=== PATIENT | male | born 1970 ===

== ENCOUNTER → 2023-07-17 | Outpatient (CLI) | payer BC ==
--- NOTE | 2023-07-18 07:52 | XR ---
EXAMINATION TYPE: XR knee complete RT DATE OF EXAM: 07/17/2023 CLINICAL HISTORY: pain TECHNIQUE: Three views of the right knee are obtained. COMPARISON: None. FINDINGS: There is no acute fracture/dislocation. [id number] degenerative joint space narrowin g. The overlying soft tissue appears unremarkable. IMPRESSION: There is no acute fracture or dislocation.ICD 10 NO FRACTURE, INITIAL EVALUATION
== END | disposition home or self-care (01) ==
LOC: RADXRMAIN 16:15
PROVIDERS: ATTEND Physician Assistant
DX: M25.561 Pain in right knee (principal)

== ENCOUNTER 2023-08-16 15:11 | Emergency (ER) | payer BC ==
[2023-08-16 15:26] VITALS: RESP 16
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
[2023-08-16] MEDS: HYDROcodone/APAP 5-325MG 1 EACH TAB PO STA (16:12)
[2023-08-16 16:25] LABS: Basophils % (A) 1 %; Eosinophils # (A) 0.1 k/uL (0-0.7); Eosinophils % (A) 3 %; HGB 15.6 gm/dL (13.0-17.5); Lymphocytes # (A) 1.2 k/uL (1.0-4.8); Lymphocytes % (A) 23 %; MCH 32.3 pg (25.0-35.0); MCHC 33.2 g/dL (31.0-37.0); MCV 97.2 fL (80.0-100.0); Mean Platelet Volume 7.6; Monocytes # (A) 0.4 k/uL (0-1.0); Monocytes % (A) 7 %; Neutrophils # (A) 3.5 k/uL (1.3-7.7); Neutrophils % (A) 66 %; Platelet Count 190 k/uL (150-450); RBC 4.83 m/uL (4.30-5.90); RDW 13.4 % (11.5-15.5); WBC 5.3 k/uL (3.8-10.6)
[2023-08-16 16:34] LABS: ALT 27 U/L (4-49); AST 26 U/L (17-59); African American GFR (CKD) >90 (>60 ml/min/1.73 sqM); Albumin 4.2 g/dL (3.5-5.0); Alkaline Phosphatase 52 U/L (38-126); Anion Gap 6 mmol/L; Blood Urea Nitrogen 14 mg/dL (9-20); Carbon Dioxide 24 mmol/L (22-30); Chloride 108 mmol/L (98-107); Glucose 119 mg/dL (74-99); Non-African American GFR(CKD) >90 (>60 ml/min/1.73 sqM); Potassium 4.2 mmol/L (3.5-5.1); Sodium 138 mmol/L (137-145); Total Bilirubin 0.7 mg/dL (0.2-1.3); Total Protein 6.6 g/dL (6.3-8.2)
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
[2023-08-16 18:31] VITALS: BP 144/86; PULSE 71; TEMP 98.2
== END 2023-08-16 18:30 | disposition home or self-care (01) ==
LOC: EC 15:11
DX: S46.912A Strain of unspecified muscle, fascia and tendon at shoulder and upper arm level, left arm, initial encounter (principal); V89.2XXA Person injured in unspecified motor-vehicle accident, traffic, initial encounter; Y92.411 Interstate highway as the place of occurrence of the external cause
CPT/HCPCS: 36415; 80053; 85025; 71260; 74177; 99284; Q9967

== ENCOUNTER 2023-08-19 15:45 | Inpatient (IN) | payer BC ==
--- NOTE | 2023-08-19 16:18 | ED ---
Chest Pain HPI - General Chief Complaint: Chest Pain Stated Complaint: chest pain NVD heartburn Time Seen by Provider: 08/19/23 15:59 Source: patient, RN notes reviewed, old records reviewed Mode of arrival: ambulatory Limitations: no limitations - History of Present Illness Initial Comments: This is a 53-year-old male for chest pain chest pain nausea vomiting shortness of breath diaphoresis and overall not feeling well. Patient denies any significant medical history no high blood pressure no high cholesterol no diabetes no smoking. No travel history no sick contacts patient still has persistent chest pain here in the ER MD Complaint: chest pain Onset: during rest, during exertion Pain Location: substernal, left chest Pain Radiation: none Severity: moderate Severity scale (1-10): 5 Consistency: constant Improves With: nothing Worsens With: nothing Anginal Symptoms: dyspnea, sense of impending doom Other Symptoms: palpitations - Related Data Allergies Allergy/AdvReac Type Severity Reaction Status Date / Time No Known Allergies Allergy Verified 08/19/23 15:48 Review of Systems ROS Statement: Those systems with pertinent positive or pertinent negative responses have been documented in the HPI. ROS Other: All systems not noted in ROS Statement are negative. EKG Findings - EKG Comments: EKG Findings:: EKG is sinus 60 IN 153 QRS 120 QTc 405 - EKG Results: EKG: interpreted by [facility] Past Medical History Past Medical History: GERD/Reflux Additional Past Medical History / Comment(s): Back pain. History of Any Multi-Drug Resistant Organisms: None Reported Past Surgical History: Orthopedic Surgery Additional Past Surgical History / Comment(s): brain tumor surgically removed 2021 Past Psychological History: Anxiety, Depression Smoking Status: Never smoker Past Alcohol Use History: Occasional Past Drug Use History: None Reported General Exam Limitations: no limitations General appearance: alert, in no apparent distress, anxious Head exam: Present: atraumatic, normocephalic, normal inspection Eye exam: Present: normal appearance, PERRL, EOMI. Absent: scleral icterus, conjunctival injection, periorbital swelling ENT exam: Present: normal exam, mucous membranes moist Neck exam: Present: normal inspection. Absent: tenderness, meningismus, lymphadenopathy Respiratory exam: Present: normal lung sounds bilaterally. Absent: respiratory distress, wheezes, rales, rhonchi, stridor Cardiovascular Exam: Present: regular rate, normal rhythm, normal heart sounds. Absent: systolic murmur, diastolic murmur, rubs, gallop, clicks GI/Abdominal exam: Present: soft, normal bowel sounds. Absent: distended, tenderness, guarding, rebound, rigid Extremities exam: Present: normal inspection, full ROM, normal capillary refill. Absent: tenderness, pedal edema, joint swelling, calf tenderness Back exam: Present: normal inspection Neurological exam: Present: alert, oriented X3, CN II-XII intact Psychiatric exam: Present: normal affect, normal mood Skin exam: Present: warm, dry, intact, normal color. Absent: rash Course Vital Signs 08/19/23 15:46 Temperature 97.8 F Pulse Rate 64 Respiratory 20 Rate Blood Pressure 174/94 O2 Sat by Pulse 99 Oximetry - Reevaluation(s) Reevaluation #1: 08/19/23 17:18 Medical records reviewed Reevaluation #2: 08/19/23 17:18 Patient symptoms unchanged Reevaluation #3: 08/19/23 17:18 Patient informed of results questions answered Reevaluation #4: Was pt. sent in by a medical professional or institution (, PA, FLOATER OPERATOR, urgent care, hospital, or group home...) When possible be specific @ -no Did you speak to anyone other than the patient for history (EMS, parent, family, police, friend...)? What history was obtained from this source @ -no Did you review nursing and triage notes (agree or disagree)? Why? @ -agree Are old charts reviewed (outside hosp., previous admission, EMS record, old EKG, old radiological studies, urgent care reports/EKG's, group home records)? Report findings @ -yes Differential Diagnosis (chest pain, altered mental status, abdominal pain women, abdominal pain men, vaginal bleeding, weakness, fever, dyspnea, syncope, headache, dizziness, GI bleed, back pain, seizure, CVA, palpatations, mental health, musculoskeletal)? @ -prior EKG interpreted by me (3pts min.). @ -yes X-rays interpreted by me (1pt min.). @ -yes negative for acute disease CT interpreted by me (1pt min.). @ -no U/S interpreted by me (1pt. min.). @ -no What testing was considered but not performed or refused? (CT, X-rays, U/S, labs)? Why? @ -none What meds were considered but not given or refused? Why? @ -none Did you discuss the management of the patient with other professionals (perry garcia i.eAbbe Banda, PA, FLOATER OPERATOR, lab, RT, psych nurse, professor of social work, criminal legal assistant, teacher, records officer, watch case polisher)? Give summary @ -no Was smoking cessation discussed for >3mins.? @ -no Was critical care preformed (if so, how long)? @ -no Were there social determinants of health that impacted care today? How? (Homelessness, low income, unemployed, alcoholism, drug addiction, transportation, low edu. Level, literacy, decrease access to med. care, prison, rehab)? @ -none Was there de-escalation of care discussed even if they declined (Discuss DNR or withdrawal of care, Hospice)? DNR status @ -no What co-morbidities impacted this encounter? (DM, HTN, Smoking, COPD, CAD, Cancer, CVA, ARF, Chemo, Hep., AIDS, mental health diagnosis, sleep apnea, morbid obesity)? @ -none Was patient admitted / discharged? Hospital course, mention meds given and route, prescriptions, significant lab abnormalities, going to OR and other pertinent info. @ - Undiagnosed new problem with uncertain prognosis? @ -no Drug Therapy requiring intensive monitoring for toxicity (Heparin, Nitro, Insulin, Cardizem)? @ -no Were any procedures done? @ -no Diagnosis/symptom? @ - Acute, or Chronic, or Acute on Chronic? @ -Acute Uncomplicated (without systemic symptoms) or Complicated (systemic symptoms)? @ -Complicated Side effects of treatment? @ -no Exacerbation, Progression, or Severe Exacerbation? @ -exacerbation Poses a threat to life or bodily function? How? (Chest pain, [place], [place], pneumonia, PE, COPD, DKA, ARF, appy, cholecystitis, CVA, Diverticulitis, Homicidal, Suicidal, threat to staff... and all critical care pts) @ -yes Reevaluation #5: Differential Chest Pain: Stable Angina, Unstable Angina, STEMI, NSTEMI Aortic Dissection, Pneumothorax, Musculoskeletal, Esophageal Spasm GERD, Cholecystitis, Pancreatitis, Zoster, this is not meant to be an all-inclusive list. - Consultations Consultation #1: Spoke with [facility] who agrees to admit this patient Chest Pain MDM - MDM 53 male to ER for evaluation of chest pain, patient does have typical chest pain and heaviness on the chest to his back with elevated blood pressure, diaphoresis and persistent chest pain throughout ER stay. Patient admitted for cardiac consult Disposition Clinical Impression: Chest pain Disposition: ADMITTED IP TO THIS HOSP Condition: Undetermined Is patient prescribed a controlled substance at d/c from ED?: No Referrals: None,Stated [Primary Care Provider] - 1-2 days Time of Disposition: 18:30
[2023-08-19] MEDS: ONDANSETRON 4 MG/2 ML VIAL IVP STA (16:37)
[2023-08-19] MEDS: MORPHINE SULFATE 4 MG/ML SYRINGE IV STA (16:38)
[2023-08-19] MEDS: SODIUM CHLORIDE 0.9% 500 ML 500 ML IV STA (16:40)
[2023-08-19 16:45] LABS: Basophils % (A) 1 %; Eosinophils # (A) 0.1 k/uL (0-0.7); Eosinophils % (A) 2 %; HCT 46.5 % (39.0-53.0); HGB 15.6 gm/dL (13.0-17.5); Lymphocytes % (A) 18 %; MCH 32.2 pg (25.0-35.0); MCHC 33.6 g/dL (31.0-37.0); Mean Platelet Volume 7.7; Monocytes # (A) 0.4 k/uL (0-1.0); Monocytes % (A) 8 %; Neutrophils # (A) 3.7 k/uL (1.3-7.7); Neutrophils % (A) 70 %; Platelet Count 196 k/uL (150-450); RBC 4.84 m/uL (4.30-5.90); RDW 13.3 % (11.5-15.5); WBC 5.3 k/uL (3.8-10.6)
[2023-08-19 16:54] LABS: ALT 26 U/L (4-49); AST 24 U/L (17-59); African American GFR (CKD) >90 (>60 ml/min/1.73 sqM); Albumin 4.5 g/dL (3.5-5.0); Alkaline Phosphatase 67 U/L (38-126); Anion Gap 7 mmol/L; Blood Urea Nitrogen 12 mg/dL (9-20); Carbon Dioxide 25 mmol/L (22-30); Chloride 106 mmol/L (98-107); Glucose 112 mg/dL (74-99); Lipase 195 U/L (23-300); Magnesium 1.8 mg/dL (1.6-2.3); Non-African American GFR(CKD) >90 (>60 ml/min/1.73 sqM); Potassium 3.9 mmol/L (3.5-5.1); Sodium 138 mmol/L (137-145); Total Bilirubin 0.7 mg/dL (0.2-1.3)
[2023-08-19 17:03] LABS: NT-Pro-B-Type Natriuretic Pept <20 pg/mL
[2023-08-19 17:21] LABS: INR 0.9 (<1.2); Partial Thromboplastin Time 23.2 sec (22.0-30.0); Prothrombin Time 10.4 sec (10.0-12.5)
--- NOTE | 2023-08-19 17:46 | XR ---
EXAMINATION TYPE: XR chest 1V portable DATE OF EXAM: 08/19/2023 5:17 PM CLINICAL INDICATION:Male, 53 years old with history of chest pain; [facility] COMPARISON: CT 08/16/2023 TECHNIQUE: XR chest 1V portable Frontal view of the chest. FINDINGS: Lungs/Pleura: There is no evidence of pleural effusion, focal consolidation, or pneumothorax. Pulmonary vascularity: Unremarkable. Heart/mediastinum: Cardiomediastinal silhouette is enlarged and stable. Musculoskeletal: No acute osseous pathology. IMPRESSION: Cardiomegaly, No acute cardiopulmonary disease/process.
[2023-08-19] MEDS: MORPHINE SULFATE 4 MG/ML SYRINGE IV PRN (19:02)
[2023-08-19] MEDS: SODIUM CHLORIDE 0.9% 1,000 ML IV STA (19:05)
[2023-08-19] MEDS: ASPIRIN 81 MG PO STA (19:06)
[2023-08-19] MEDS: METOPROLOL TARTRATE 25 MG TAB PO SCH (21:28)
[2023-08-19] MEDS: NITROGLYCERIN SL TABS 0.4 MG TAB SUBLINGUAL PRN (21:37)
[2023-08-20] MEDS: ASPIRIN 325 MG TAB PO SCH (08:15)
[2023-08-20 09:30] LABS: Chol/HDL Ratio 3.33 Ratio; LDL Cholesterol,Calculated 96.8 mg/dL (0.0-131.0); VLDL Calculation 19.42 mg/dL (5.00-40.00)
[2023-08-20] MEDS ORDERED: ALPRAZolam 0.25 MG TAB PO PRN (10:16)
[2023-08-20] MEDS ORDERED: ALPRAZolam 0.5 MG TAB PO PRN (10:16)
[2023-08-20] MEDS: ASPIRIN 325 MG TAB PO STA (10:22)
[2023-08-20] MEDS: NITROGLYCERIN SL TABS 0.4 MG TAB SUBLINGUAL PRN (10:25)
[2023-08-20] MEDS: ATORVASTATIN 80 MG TAB PO STA (10:42)
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
[2023-08-20] MEDS: ACETAMINOPHEN TAB 325 MG TAB PO PRN (11:44)
[2023-08-20] MEDS ORDERED: HEPARIN SODIUM 1,000 UN/ML (10ML VL) ONE (13:26)
[2023-08-20] MEDS ORDERED: fentaNYL (PF) 50 MCG/ML 2 ML AMP ONE (13:26)
[2023-08-20] MEDS: SODIUM CHLORIDE 0.9% 1,000 ML IV ONE (13:43)
[2023-08-20] MEDS: HEPARIN SODIUM,PORCINE 10,000 UNIT in SODIUM CHLORIDE 0.9% 1,000 ML IRRIGATION PRN (13:46)
[2023-08-20] MEDS: HEPARIN SODIUM,PORCINE (1 ML) 2,500 UNIT in SODIUM CHLORIDE 0.9% 250 ML IRRIGATION PRN (13:46)
[2023-08-20] MEDS: MIDAZOLAM 2 MG/2 ML VIAL IVP ONE (13:52)
[2023-08-20] MEDS: fentaNYL (PF) 50 MCG/ML 2 ML AMP IVP ONE (13:52)
[2023-08-20] MEDS: LIDOCAINE 1% INJ 10MG/ML (20 ML MDV) SQ ONE (13:56)
[2023-08-20] MEDS: VERAPAMIL SYRINGE (5 MG/10 ML) INTRAARTER ONE (13:59)
[2023-08-20] MEDS: HEPARIN SODIUM 1,000 UN/ML (10ML VL) IVP ONE (14:02)
[2023-08-20] MEDS: IOPAMIDOL-370 100ML BTL INJ ONE (14:08)
--- NOTE | 2023-08-20 15:00 | P.HPIM ---
History of Present Illness H&P Date: 08/20/23 History of present illness; 53-year-old man presented to the emergency department on 08/18 with chest pain, nausea, vomiting, shortness of breath, diaphoresis and overall not feeling well. Patient rated the pain as a 5/10, at its worst being 8/10. He states the pain occurs both with and without activity, is localized substernally. He denies history of hypertension, hyperlipidemia, diabetes mellitus. Family history is significant for cardiovascular disease, father at 56 due to an [place] and grandfather at 65 due to an [place]. Patient continues to have intermittent chest pain relieved for a couple hours at a time with nitroglycerin, morphine and acetaminophen. However he also has some pain relief and periods without medication. Initial lab work done in the ER showed troponin within normal range less than 0.012, BMP within normal range less than 20. Chest x-ray done in the ER-noted cardiomegaly, with no acute cardiopulmonary disease. Patient admitted to internal medicine service REVIEW OF SYSTEMS: CONSTITUTIONAL: No fever, no malaise, no fatigue. HEENT: No recent visual problems or hearing problems. Denied any sore throat. CARDIOVASCULAR: Patient has intermittent chest pain, orthopnea, PND, no palpitations, no syncope. PULMONARY: No shortness of breath, no cough, no hemoptysis. GASTROINTESTINAL: No diarrhea, no nausea, no vomiting, no abdominal pain. NEUROLOGICAL: No headaches, no weakness, no numbness. HEMATOLOGICAL: Denies any bleeding or petechiae. GENITOURINARY: Denies any burning micturition, frequency, or urgency. MUSCULOSKELETAL/RHEUMATOLOGICAL: Denies any joint pain, swelling, or any muscle pain. ENDOCRINE: Denies any polyuria or polydipsia. The rest of the 14-point review of systems is negative. PHYSICAL EXAMINATION: GENERAL: The patient is alert and oriented x3, not in any acute distress. Well developed, well nourished. HEENT: Pupils are round and equally reacting to light. EOMI. No scleral icterus. No conjunctival pallor. Normocephalic, atraumatic. No pharyngeal erythema. No thyromegaly. CARDIOVASCULAR: S1 and S2 present. No murmurs, rubs, or gallops. PULMONARY: Chest is clear to auscultation, no wheezing or crackles. ABDOMEN: Soft, nontender, nondistended, normoactive bowel sounds. No palpable organomegaly. MUSCULOSKELETAL: No joint swelling or deformity. EXTREMITIES: No cyanosis, clubbing, or pedal edema. NEUROLOGICAL: Gross neurological examination did not reveal any focal deficits. SKIN: No rashes. Assessment and plan Acute coronary syndrome Ordered serial troponins order serial EKGs Continue telemetry monitoring Started patient on dose heparin Ordered 2D echo -Continue morphine, metoprolol, aspirin, nitroglycerin tablets, acetaminophen. Cardiology consulted, planning cardiac cath today Chronic medical problems Anxiety Depression Continue home meds DVT prophylaxis Currently on heparin drip Labs and medication were reviewed. Continue with symptomatic treatment. Resume home medication. Monitor labs and vitals. DVT and GI prophylaxis. Further recommendations as per clinical course of the patient Patient seen and examined. Patient admitted for chest pain, intermittent, pre ssure-like, central in location, nonradiating. Patient was worked in the ER, initial lab work was benign, Trope was normal. EKG did not show any acute ST segment changes, there was some T wave flattening. Cardiology started patient on pulm dose heparin, with plan for cardiac cath later in the day GENERAL: The patient is alert and oriented x3, not in any acute distress. Well developed, well nourished. HEENT: Pupils are round and equally reacting to light. EOMI. No scleral icterus. No conjunctival pallor. Normocephalic, atraumatic. No pharyngeal erythema. No thyromegaly. CARDIOVASCULAR: S1 and S2 present. No murmurs, rubs, or gallops. PULMONARY: Chest is clear to auscultation, no wheezing or crackles. ABDOMEN: Soft, nontender, nondistended, normoactive bowel sounds. No palpable organomegaly. MUSCULOSKELETAL: No joint swelling or deformity. EXTREMITIES: No cyanosis, clubbing, or pedal edema. NEUROLOGICAL: Gross neurological examination did not reveal any focal deficits. SKIN: No rashes. no petechiae. I reviewed the documentation as provided by the JOSEPH above, who is the original author of this note. I agree with the documented assessment and plan, with the following changes Armando Bernabe MD Dictation was produced using [employer] dictation software. please excuse any grammatical, word or spelling errors. Past Medical History Past Medical History: GERD/Reflux Additional Past Medical History / Comment(s): Back pain. History of Any Multi-Drug Resistant Organisms: None Reported Past Surgical History: Orthopedic Surgery Additional Past Surgical History / Comment(s): brain tumor surgically removed 2021 Past Psychological History: Anxiety, Depression Smoking Status: Never smoker Past Alcohol Use History: Occasional Past Drug Use History: None Reported Medications and Allergies Home Medications Medication Instructions Recorded Confirmed Type HYDROcodone/APAP 5-325MG [[place] 2 tab PO QID 08/19/23 History 5-325] Sertraline [Zoloft] 1 tab PO DAILY 08/19/23 08/19/23 History lamoTRIgine 1 tab PO DAILY 08/19/23 08/19/23 History Allergies Allergy/AdvReac Type Severity Reaction Status Date / Time No Known Allergies Allergy Verified 08/19/23 19:00 Physical Exam Vitals: Vital Signs Temp Pulse Pulse Resp BP BP BP 08/20/23 11:49 62 16 136/79 08/20/23 07:00 98.1 F 54 L 16 144/84 08/20/23 06:00 52 L 16 138/90 08/20/23 02:00 50 L 20 08/19/23 22:41 51 L 20 139/92 08/19/23 22:01 130/86 08/19/23 20:30 98.1 F 50 L 18 157/90 08/19/23 15:46 97.8 F 64 20 174/94 Pulse Ox 08/20/23 11:49 08/20/23 07:00 97 08/20/23 06:00 99 08/20/23 02:00 98 08/19/23 22:41 98 08/19/23 22:01 08/19/23 20:30 98 08/19/23 15:46 99 Intake and Output 08/19/23 08/20/23 08/20/23 22:59 06:59 14:59 Intake Total 250 Balance 250 Intake: IV 250 Other: Weight 120.202 kg Results CBC & Chem 7: 08/19/23 16:31 08/19/23 16:31 Labs: Abnormal Lab Results - Last 24 Hours (Table) 08/19/23 Range/Units 16:31 Creatinine 0.58 L (0.66-1.25) mg/dL Glucose 112 H (74-99) mg/dL Thrombosis Risk Factor Assmnt - Choose All That Apply Each Factor Represents 1 point: Age 41-60 years, Obesity (BMI >25) Thrombosis Risk Factor Assessment Total Risk Factor Score: 2 Thrombosis Risk Factor Assessment Level: Low Risk
--- NOTE | 2023-08-20 16:34 | P.CARDCATH ---
Description of Procedure: PROCEDURES PERFORMED: Left heart catheterization, bilateral coronary angiography, ultrasound guided arterial access INDICATION: Unstable angina CONSENT:I have discussed the risks, benefits and alternative therapies for the above-mentioned procedure and for both sedation/analgesia as well as necessary blood product administration, if indicated, as they pertain to this patient. The patient has indicated understanding and acceptance of the risks and procedures discussed. PROCEDURE: After the risks, benefits and alternatives of the above mentioned procedure explained in detail with the patient, informed consent was obtained. Patient was taken to the catheterization lab and prepped and draped in usual fashion. Ultrasound guidance was used to assess for arterial access. 1% lidocaine was used to anesthetize the right radial artery. A 6-[place]izen [place] sheath was placed in the right radial artery using modified Seldinger technique and ultrasound guidance. Left coronary angiography was performed with a 5-[place]izen [place] JL 3.5 catheter and right coronary angiography was performed with a 5-[place] FR5 catheter in various views. A 5-[place]izen [place] FR5 catheter was inserted into the left ventricle and pressure measurements were obtained. The right radial sheath was removed and a TR band was placed with hemostasis achieved. The patient tolerat ed the procedure well. Patient was transported back to the post catheterization holding area in stable condition. Conscious Sedation: Patient was monitored under the direct supervision of myself for conscious sedation using Versed and fentanyl for a total duration of 12 minutes HEMODYNAMICS: Ao: 134/87 LV: 138/14, LVEDP 25 SELECTIVE CORONARY ARTERIOGRAPHY: LEFT MAIN: The left main is a large caliber vessel which trifurcates into the LAD, ramus and circumflex. There is no significant stenosis. LEFT ANTERIOR DESCENDING CORONARY ARTERY: LAD is a large caliber vessel which wraps around to the apex. There are mild luminal irregularities. There is a mild amount of bridging of the mid LAD. RAMUS INTERMEDIUS: the ramus is a moderate to large caliber vessel with no significant stenosis. LEFT CIRCUMFLEX CORONARY ARTERY: Left circumflex is a moderate caliber vessel with mild luminal irregularities. RIGHT CORONARY ARTERY: The right coronary artery is a large caliber vessel which gives off a PDA and PLV branch and is the dominant vessel. There are mild luminal irregularities. FINAL IMPRESSION: 1. Relatively normal coronary arteries with only mild luminal irregularities 2. Elevated left sided filling pressures PLAN: 1. Aggressive risk factor modification per most recent ACC/AHA guidelines. 2. Follow-up in the office in 1-2 weeks.
[2023-08-21 08:21] VITALS: BP 97/56; PULSE 53; RESP 18; TEMP 98.4
[2023-08-21] MEDS: SERTRALINE 100 MG TAB PO SCH (08:41)
[2023-08-21] MEDS: lamoTRIgine 100 MG TAB PO SCH (08:42)
--- NOTE | 2023-08-21 09:12 | P.PN ---
Subjective Progress Note Date: 08/21/23 53-year-old male present emergency department on 08/18 with chest pain, nausea, vomiting, shortness of breath, diaphoresis and overall not feeling well. Patient rated the pain as a 5/10, at its worst being 8/10. He states that the pain occurs both with and without activity, is localized substernally. He denies history of hypertension, hyperlipidemia, diabetes mellitus. He continues to have intermittent chest pain relieved for a couple of hours at a time with nitroglycerin, morphine and acetaminophen. However he is able to have some pain relief and periods without medication. Initial lab work done in the ER showed troponin within normal range less than 0.012, BNP within normal range less than 20. Chest x-ray done in the ER noted cardiomegaly, with no acute pulmonary disease. 08/20 -patient states today that his pain has decreased and he is feeling better. Cardiology was consulted and a left heart cath was performed on 08/19 which showed normal coronary arteries with only mild luminal irregularities, and an elevated left-sided filling pressure. Patient instructed to follow-up with card iology in 1-2 weeks. REVIEW OF SYSTEMS: CONSTITUTIONAL: No fever, no malaise CARDIOVASCULAR: No chest pain, no palpitations, no syncope PULMONARY: No shortness of breath, no cough GASTROINTESTINAL: No diarrhea, no nausea, no vomiting, no abdominal pain NEUROLOGICAL: No headaches, no weakness PHYSICAL EXAMINATION: GENERAL: The patient is alert and oriented x3, not in any acute distress. Well d eveloped, well nourished. HEENT: Pupils are round and equally reacting to light. EOMI. No scleral icterus. No conjunctival pallor. Normocephalic, atraumatic. No pharyngeal erythema. No thyromegaly. CARDIOVASCULAR: S1 and S2 present. No murmurs, rubs, or gallops. PULMONARY: Chest is clear to auscultation, no wheezing or crackles. ABDOMEN: Soft, nontender, nondistended, normoactive bowel sounds. No palpable organomegaly. MUSCULOSKELETAL: No joint swelling or deformity. EXTREMITIES: No cyanosis, clubbing, or pedal edema. NEUROLOGICAL: Gross neurological examination did not reveal any focal deficits. SKIN: No rashes. Assessment and plan 1. Acute coronary syndrome Ordered serial troponins Ordered serial EKGs Continue telemetry monitoring Ordered 2D echo Continue morphine, metoprolol, aspirin, nitroglycerin tablets, acetaminophen. Cardiology consulted, cardiac cath completed on 08/19. Chronic medical problems 1. Anxiety/depression Continue home medications Monitor vital signs Continue telemetry monitoring Labs and medication were reviewed. Continue with symptomatic treatment. Resume home medication. Monitor labs and vitals. DVT and GI prophylaxis. Further recommendations as per clinical course of the patient Dictation was produced using [employer] dictation software. please excuse any grammatical, word or spelling errors. Objective - Vital Signs Vital signs: Vital Signs Temp 98.4 F 08/21/23 07:00 Pulse 53 L 08/21/23 07:00 Resp 18 08/21/23 07:00 BP 97/56 08/21/23 07:00 Pulse Ox 94 L 08/21/23 07:00 FiO2 Intake & Output 08/20/23 08/21/23 08/21/23 18:59 06:59 18:59 Intake Total 250 Balance 250 Weight 120.202 kg Intake: IV 250 Other: Voiding Method Toilet Toilet # Voids 1 2 - Labs CBC & Chem 7: 08/19/23 16:31 08/19/23 16:31
--- NOTE | 2023-08-21 11:56 | CA ---
Transthoracic Echo Report Name: Ezio Ni Age: 53 Gender: M : 1970 Exam Date: 08/21/2023 08:17 Exam Location: [facility] Ht (in): 65 Wt (lb): 265 Ordering Physician: Angel Vela DO Attending/Referring Phys: [id number], Dane Rivet Machine Operator Yocasta Morrow RDCS Procedure CPT: Indications: CP Cardiac Hx: Cath Technical Quality: Fair Contrast 1: Total Dose (mL): Contrast 2: Total Dose (mL): MEASUREMENTS (Male / Female) Normal Values 2D ECHO LV Diastolic Diameter PLAX 5.2 cm 4.2 - 5.9 / 3.9 - 5.3 cm LV Systolic Diameter PLAX 3.7 cm IVS Diastolic Thickness 1.4 cm 0.6 - 1.0 / 0.6 - 0.9 cm LVPW Diastolic Thickness 1.4 cm 0.6 - 1.0 / 0.6 - 0.9 cm LV Relative Wall Thickness 0.5 RV Internal Dim ED PLAX 3.0 cm LA Systolic Diameter LX 4.5 cm 3.0 - 4.0 / 2.7 - 3.8 cm LV Diastolic Volume MOD BP 91.4 cm??? 67 - 155 / 56 - 104 cm??? LV Systolic Volume MOD BP 36.4 cm??? 22 - 58 / 19 - 49 cm??? LV Ejection Fraction MOD BP 60.2 % >= 55 % LV Cardiac Index MOD BP 1094.4 cm???/min???m??? LV Diastolic Volume MOD 4C 76.7 cm??? LV Systolic Volume MOD 4C 32.6 cm??? LV Ejection Fraction MOD 4C 57.5 % LV Cardiac Index MOD 4C 877.7 cm???/min???m??? LV Diastolic Length 4C 6.9 cm LV Systolic Length 4C 5.4 cm LV Diastolic Volume MOD 2C 97.3 cm??? LV Systolic Volume MOD 2C 34.0 cm??? LV Ejection Fraction MOD 2C 65.1 % LV Cardiac Index MOD 2C 1259.2 cm???/min???m??? LV Diastolic Length 2C 7.8 cm LV Systolic Length 2C 6.6 cm M-MODE Aortic Root Diameter MM 3.4 cm LA Systolic Diameter MM 5.3 cm LA Ao Ratio MM 1.5 AV Cusp Separation MM 1.9 cm DOPPLER Mitral E Point Velocity 71.9 cm/s Mitral A Point Velocity 69.3 cm/s Mitral E to A Ratio 1.0 MV Deceleration Time 327.5 ms MV E' Velocity 6.5 cm/s Mitral E to MV E' Ratio 11.0 FINDINGS Left Ventricle Left ventricular ejection fraction is estimated at 55-60 %. Mildly increased septal wall thickness. No obvious regional wall motion abnormalities. Left ventricular cavity size normal. Right Ventricle Normal right ventricular size and function. Unable to estimate the right ventricular systolic pressure. Right Atrium Normal right atrial size. Left Atrium Mildly increased left atrial diameter. Mitral Valve Mitral valve not well visualized. Trace mitral regurgitation. No mitral stenosis. Aortic Valve Trileaflet aortic valve. No aortic valve stenosis or regurgitation. Tricuspid Valve Structurally normal tricuspid valve. Trace tricuspid regurgitation. No tricuspid stenosis. Pulmonic Valve Structurally normal pulmonic valve. Trace pulmonic regurgitation. No pulmonic stenosis. Pericardium No pericardial or pleural effusion. Aorta Normal size aortic root and proximal ascending aorta. CONCLUSIONS Left ventricular ejection fraction 55-60% Mild increased left ventricular wall thickness Trace mitral regurgitation Trace tricuspid regurgitation No pericardial effusion Previewed by: Dr. Moisés Bernstein DO (Electronically Signed) Final Date: 21 August 2023 11:55
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
--- NOTE | 2023-08-21 13:57 | P.DS ---
Providers Date of admission: 08/20/23 14:31 Attending physician: Jacques Garcia Consults: 08/19/23 18:29 Consult Physician Routine Consulting Provider: Sheldon Pratt Consult Reason/Comments: cp Do you want consulting provider notified?: Yes Primary care physician: Stated None Hospital Course: Discharge diagnoses; Chest pain potentially as a result of GERD. Cardiac causes have been ruled out following heart catheterization showing mild disease, and his echocardiogram showing a preserved ejection fraction without significant valvular disease. Hospital course; 53-year-old man presented to the emergency department on 08/18 with chest pain, nausea, vomiting, shortness of breath, diaphoresis and overall not feeling well. Patient rated the pain as a 5/10, at its worst being 8/10. He states the pain occurs both with and without activity, is localized substernally. He denies history of hypertension, hyperlipidemia, diabetes mellitus. Family history is significant for cardiovascular disease, father at 56 due to an [place] and grandfather at 65 due to an [place]. Patient continues to have intermittent chest pain relieved for a couple hours at a time with nitroglycerin, morphine and acetaminophen. However he also has some pain relief and periods without medication. Initial lab work done in the ER showed troponin within normal range less than 0.012, BMP within normal range less than 20. Chest x-ray done in the ER-noted cardiomegaly, with no acute cardiopulmonary disease. 08/20 -patient seen and examined at bedside. Feeling much better today, still states he has some pressure-like discomfort substernally however is feeling much better than yesterday. Patient underwent a cardiac catheterization on 08/19 which showed mild coronary artery disease and no significant obstructive disease. Additionally, echocardiogram done on 08/20 showed a preserved ejection fraction without significant valvular disease. PHYSICAL EXAMINATION: GENERAL: The patient is alert and oriented x3, not in any acute distress. Well developed, well nourished. HEENT: Pupils are round and equally reacting to light. EOMI. No scleral icterus. No conjunctival pallor. Normocephalic, atraumatic. No pharyngeal erythema. No thyromegaly. CARDIOVASCULAR: S1 and S2 present. No murmurs, rubs, or gallops. PULMONARY: Chest is clear to auscultation, no wheezing or crackles. ABDOMEN: Soft, nontender, nondistended, normoactive bowel sounds. No palpable organomegaly. MUSCULOSKELETAL: No joint swelling or deformity. EXTREMITIES: No cyanosis, clubbing, or pedal edema. NEUROLOGICAL: Gross neurological examination did not reveal any focal deficits. SKIN: No rashes. Dictation was produced using [employer] dictation software. please excuse any grammatical, word or spelling errors. Patient Condition at Discharge: Undetermined Plan - Discharge Summary New Discharge Prescriptions: New Pantoprazole [Protonix] 40 mg PO DAILY 7 Days #7 tab Continue lamoTRIgine 1 tab PO DAILY Sertraline [Zoloft] 1 tab PO DAILY HYDROcodone/APAP 5-325MG [[place] 5-325] 2 tab PO QID Discharge Medication List HYDROcodone/APAP 5-325MG [[place] 5-325] 2 tab PO QID 08/19/23 [History] Sertraline [Zoloft] 1 tab PO DAILY 08/19/23 [History] lamoTRIgine 1 tab PO DAILY 08/19/23 [History] Pantoprazole [Protonix] 40 mg PO DAILY 7 Days #7 tab 08/21/23 [Rx] Follow up Appointment(s)/Referral(s): Moisés Bernstein, [STAFF PHYSICIAN] - 1 Week (office will call you with appoinment date and time. ) Arben Gill MD [REFERRING] - 1-2 Days None,Stated [Primary Care Provider] - 1-2 days Patient Instructions/Handouts: *Surgery [facility] - After Heart Catheterization - Revenue Stamp Cutter Instructions Activity/Diet/Wound Care/Special Instructions: No driving for two days Ok to shower today but no baths, pools, lakes, doing dishes by hand for five days. Signs of infection IE: fever, rash, drainage from puncture site, swelling go to ER/doctor for immediate evaluation. Avoid using right wrist/hand to bend, flex, lift greater than 5 lbs for five days. For Heavy Bleeding of puncture site apply firm direct pressure and return to ER. Do not attempt to drive self. low sodium/low fat diet medications as directed by Cardiologists Discharge/Stand Alone Forms: Work/School Release / Restrict Discharge Disposition: HOME SELF-CARE
== END 2023-08-21 14:58 | disposition home or self-care (01) | DRG 287 ==
LOC: EC 15:45 → 6NMEDSUR 18:33 → OBSVTOIN 08-20 14:31
PROVIDERS: ADMIT Hospitalist; ATTEND Hospitalist
PROC: B2111ZZ Fluoroscopy of Multiple Coronary Arteries using Low Osmolar Contrast (ICD-10-PCS; 2023-08-20)
PROC: 4A023N7 Measurement of Cardiac Sampling and Pressure, Left Heart, Percutaneous Approach (ICD-10-PCS; principal; 2023-08-20 17:35)
DX: I25.110 Atherosclerotic heart disease of native coronary artery with unstable angina pectoris (principal); R00.1 Bradycardia, unspecified; F41.9 Anxiety disorder, unspecified; F32.A Depression, unspecified; I10 Essential (primary) hypertension; K21.9 Gastro-esophageal reflux disease without esophagitis; Z82.49 Family history of ischemic heart disease and other diseases of the circulatory system; I08.1 Rheumatic disorders of both mitral and tricuspid valves
CPT/HCPCS: 36415; 71045; 80053; 80061; 83690; 83735; 83880; 84484; 85025; 85379; 85610; 85730; 93005; 93306; 93458; 96374; 96375; 96376; 99285

== ENCOUNTER → 2023-11-13 | Outpatient (CLI) | payer BC ==
--- NOTE | 2023-11-13 17:56 | MR ---
EXAMINATION TYPE: MR brain wo/w con DATE OF EXAM: 11/13/2023 COMPARISON: None at this location HISTORY: Pituitary tumor removed, CONTRAST: Performed utilizing 12 mL intravenous Gadavist gadolinium contrast. TECHNIQUE: Multiplanar, multiecho imaging on a 3.0 Keke magnet is performed through the brain. Stud y is performed within 24 hours of arrival to the hospital. The craniovertebral junction is normal. The pituitary as visualized appears normal. No suspicious mas s is evident. Optic chiasm is visualized appears normal. Diffusion-weighted imaging is performed. No abnormal hyperintensity is present to suggest an acute i ntracranial infarct or acute ischemic change. There are scattered punctate areas of hyperintensity on T2 and Inversion Recovery weighted sequences which are non-specific but can be related to microvascular ischemic changes. Ventricles and sulci are appropriate for the patient age. No suspicious enhancement is evident. No suspicious pituitary mass is evident. There is some deviatio n of the pituitary stalk towards left which may be postsurgical in nature. Small retention cysts are within the maxillary sinuses. IMPRESSION: 1. No suspicious changes to suggest recurrent pituitary mass status post surgery. [facility], , 11/13/2023 5:54 PM
== END | disposition home or self-care (01) ==
LOC: RADMRIMAIN 15:41
PROVIDERS: ATTEND Neurological Surgery
DX: D35.2 Benign neoplasm of pituitary gland (principal)
CPT/HCPCS: 70553

== ENCOUNTER 2024-02-25 21:52 | Emergency (ER) | payer BC ==
[2024-02-25 21:57] VITALS: RESP 18; TEMP 98
--- NOTE | 2024-02-25 23:04 | ED ---
Psych HPI - General Chief Complaint: Psychiatric Symptoms Stated Complaint: Mental Health Time Seen by Provider: 02/25/24 22:54 Source: patient, RN notes reviewed, old records reviewed Mode of arrival: ambulatory Limitations: no limitations - History of Present Illness Initial Comments: This is a 53 male this male presents today for evaluation of suicidal thoughts with depression. Patient does follow with psychiatry and states symptoms are increasingly and progressively worsening MD Complaint: suicidal ideation, feels depressed -: days(s) Associated Psychiatric Symptoms: depression, suicidal ideation Quality: getting worse Worsens With: none Context: not taking psychiatric medications, significant life stressor Associated Symptoms: denies other symptoms Treatments Prior to Arrival: placed on mental health hold If Self Harm: admits thoughts of self harm - Related Data Home Medications Medication Instructions Recorded Confirmed HYDROcodone/APAP 10-325MG [[place] 1 tab PO QID 02/26/24 02/26/24 10-325] Allergies Allergy/AdvReac Type Severity Reaction Status Date / Time No Known Allergies Allergy Verified 02/26/24 09:06 Review of Systems ROS Statement: Those systems with pertinent positive or pertinent negative responses have been documented in the HPI. ROS Other: All systems not noted in ROS Statement are negative. Past Medical History Past Medical History: GERD/Reflux Additional Past Medical History / Comment(s): Back pain. History of Any Multi-Drug Resistant Organisms: None Reported Past Surgical History: Orthopedic Surgery Additional Past Surgical History / Comment(s): brain tumor surgically removed 2021 Past Psychological History: Anxiety, Depression Smoking Status: Never smoker Past Alcohol Use History: Occasional Past Drug Use History: None Reported General Exam General appearance: alert, in no apparent distress, anxious Head exam: Present: atraumatic, normocephalic, normal inspection Eye exam: Present: normal appearance, PERRL, EOMI. Absent: scleral icterus, conjunctival injection, periorbital swelling ENT exam: Present: normal exam, mucous membranes moist Neck exam: Present: normal inspection. Absent: tenderness, meningismus, lymphadenopathy Respiratory exam: Present: normal lung sounds bilaterally. Absent: respiratory distress, wheezes, rales, rhonchi, stridor Cardiovascular Exam: Present: regular rate, normal rhythm, normal heart sounds. Absent: systolic murmur, diastolic murmur, rubs, gallop, clicks GI/Abdominal exam: Present: soft, normal bowel sounds. Absent: distended, t enderness, guarding, rebound, rigid Extremities exam: Present: normal inspection, full ROM, normal capillary refill. Absent: tenderness, pedal edema, joint swelling, calf tenderness Back exam: Present: normal inspection Neurological exam: Present: alert, oriented X3, CN II-XII intact Psychiatric exam: Present: normal affect, normal mood Skin exam: Present: warm, dry, intact, normal color. Absent: rash Course Vital Signs 02/25/24 02/26/24 02/26/24 21:53 03:37 06:36 Temperature 98 F Pulse Rate 58 L 49 L Respiratory 18 18 18 Rate Blood Pressure 207/125 162/76 O2 Sat by Pulse 96 94 L Oximetry 02/26/24 07:46 Temperature Pulse Rate 60 Respiratory 18 Rate Blood Pressure 153/89 O2 Sat by Pulse 95 Oximetry - Reevaluation(s) Reevaluation #1: 02/25/24 23:14 Medical records reviewed Reevaluation #2: 02/25/24 23:14 Patient has no complaints Reevaluation #3: 02/25/24 23:14 Medically cleared for psychiatric evaluation Reevaluation #4: Was pt. sent in by a medical professional or institution (, PA, DEPUTY SHERIFF, urgent care, hospital, or fpc...) When possible be specific @ -no Did you speak to anyone other than the patient for history (EMS, parent, family, police, friend...)? What history was obtained from this source @ -no Did you review nursing and triage notes (agree or disagree)? Why? @ -agree Are old charts reviewed (outside hosp., previous admission, EMS record, old EKG, old radiological studies, urgent care reports/EKG's, fpc records)? Report findings @ -yes Differential Diagnosis (chest pain, altered mental status, abdominal pain women, abdominal pain men, vaginal bleeding, weakness, fever, dyspnea, syncope, heada solomon, dizziness, GI bleed, back pain, seizure, CVA, palpatations, mental health, musculoskeletal)? @ -prior EKG interpreted by me (3pts min.). @ -no X-rays interpreted by me (1pt min.). @ -no CT interpreted by me (1pt min.). @ -no U/S interpreted by me (1pt. min.). @ -no What testing was considered but not performed or refused? (CT, X-rays, U/S, labs)? Why? @ -none What meds were considered but not given or refused? Why? @ -none Did you discuss the management of the patient with other professionals (professionals i.e. , PA, DEPUTY SHERIFF, lab, RT, psych nurse, social services assistant, candle cutter, teacher, marketing officer, case management manager)? Give summary @ -no Was smoking cessation discussed for >3mins.? @ -no Was critical care preformed (if so, how long)? @ -no Were there social determinants of health that impacted care today? How? (Homelessness, low income, unemployed, alcoholism, drug addiction, transp ortation, low edu. Level, literacy, decrease access to med. care, fci, rehab)? @ -none Was there de-escalation of care discussed even if they declined (Discuss DNR or withdrawal of care, Hospice)? DNR status @ -no What co-morbidities impacted this encounter? (DM, HTN, Smoking, COPD, CAD, Cancer, CVA, ARF, Chemo, Hep., AIDS, mental health diagnosis, sleep apnea, morbid obesity)? @ -none Was patient admitted / discharged? Hospital course, mention meds given and route, prescriptions, significant lab abnormalities, going to OR and other pertinent info. @ - 53 male to ER with acute psychiatric illness severe psychiatric illness depression and suicidal thoughts patient be transferred for inpatient psychiatric evaluation and treatment Transferred inpatient admission Undiagnosed new problem with uncertain prognosis? @ -no Drug Therapy requiring intensive monitoring for toxicity (Heparin, Nitro, Insulin, Cardizem)? @ -no Were any procedures done? @ -no Diagnosis/symptom? @ -Psychiatric depression and suicidal ideation Acute, or Chronic, or Acute on Chronic? @ -Acute Uncomplicated (without systemic symptoms) or Complicated (systemic symptoms)? @ -Complicated Side effects of treatment? @ -no Exacerbation, Progression, or Severe Exacerbation? @ -exacerbation Poses a threat to life or bodily function? How? (Chest pain, [place], [place], pneumonia, PE, COPD, DKA, ARF, appy, cholecystitis, CVA, Diverticulitis, Homicidal, Suicidal, threat to staff... and all critical care pts) @ -yes with suicidal thoughts Medical Decision Making - Medical Decision Making 53 male to ER with acute psychiatric illness severe psychiatric illness dep ression and suicidal thoughts patient be transferred for inpatient psychiatric evaluation and treatment - Lab Data Result diagrams: 02/26/24 00:24 02/26/24 00:24 Lab Results 02/25/24 02/25/24 02/25/24 Range/Units 21:57 21:57 22:59 WBC (3.8-10.6) k/uL RBC (4.30-5.90) m/uL Hgb (13.0-17.5) gm/dL Hct (39.0-53.0) % MCV (80.0-100.0) fL MCH (25.0-35.0) pg MCHC (31.0-37.0) g/dL RDW (11.5-15.5) % Plt Count (150-450) k/uL MPV Neutrophils % % Lymphocytes % % Monocytes % % Eosinophils % % Basophils % % Neutrophils # (1.3-7.7) k/uL Lymphocytes # (1.0-4.8) k/uL Monocytes # (0-1.0) k/uL Eosinophils # (0-0.7) k/uL Basophils # (0-0.2) k/uL Sodium (137-145) mmol/L Potassium (3.5-5.1) mmol/L Chloride (98-107) mmol/L Carbon Dioxide (22-30) mmol/L Anion Gap mmol/L BUN (9-20) mg/dL Creatinine (0.66-1.25) mg/dL Est GFR (CKD-EPI)AfAm (>60 ml/min/1.73 sqM) Est GFR (CKD-EPI)NonAf (>60 ml/min/1.73 sqM) Glucose (74-99) mg/dL Calcium (8.4-10.2) mg/dL Total Bilirubin (0.2-1.3) mg/dL AST (17-59) U/L ALT (4-49) U/L Alkaline Phosphatase (38-126) U/L Total Protein (6.3-8.2) g/dL Albumin (3.5-5.0) g/dL TSH (0.465-4.680) mIU/L Urine Color Yellow Urine Appearance Clear (Clear) Urine pH 6.5 (5.0-8.0) Ur Specific [place] 1.022 (1.001-1.035) Urine Protein Negative (Negative) Urine Glucose (UA) Negative (Negative) Urine Ketones Negative (Negative) Urine Blood Negative (Negative) Urine Nitrite Negative (Negative) Urine Bilirubin Negative (Negative) Urine Urobilinogen 2.0 (<2.0) mg/dL Ur Leukocyte Esterase Negative (Negative) Urine Opiates Screen Detected H (NotDetected) Ur Oxycodone Screen Detected H (NotDetected) Urine Methadone Screen Not Detected (NotDetected) Ur Barbiturates Screen Not Detected (NotDetected) U Tricyclic Antidepress Not Detected (NotDetected) Ur Phencyclidine Scrn Not Detected (NotDetected) Ur Amphetamines Screen Not Detected (NotDetected) U Methamphetamines Scrn Not Detected (NotDetected) U Benzodiazepines Scrn Not Detected (NotDetected) Urine Cocaine Screen Not Detected (NotDetected) U Marijuana (THC) Screen Detected H (NotDetected) Influenza Type A (PCR) Not Detected (Not Detectd) Influenza Type B (PCR) Not Detected (Not Detectd) RSV (PCR) Not Detected (Not Detectd) SARS-CoV-2 (PCR) Not Detected (Not Detectd) 02/26/24 02/26/24 Range/Units 00:24 00:24 WBC 5.7 (3.8-10.6) k/uL RBC 4.65 (4.30-5.90) m/uL Hgb 14.8 (13.0-17.5) gm/dL Hct 44.5 (39.0-53.0) % MCV 95.6 (80.0-100.0) fL MCH 31.9 (25.0-35.0) pg MCHC 33.3 (31.0-37.0) g/dL RDW 13.2 (11.5-15.5) % Plt Count 182 (150-450) k/uL MPV 7.2 Neutrophils % 55 % Lymphocytes % 34 % Monocytes % 7 % Eosinophils % 3 % Basophils % 1 % Neutrophils # 3.1 (1.3-7.7) k/uL Lymphocytes # 1.9 (1.0-4.8) k/uL Monocytes # 0.4 (0-1.0) k/uL Eosinophils # 0.2 (0-0.7) k/uL Basophils # 0.0 (0-0.2) k/uL Sodium 136 L (137-145) mmol/L Potassium 4.3 (3.5-5.1) mmol/L Chloride 101 (98-107) mmol/L Carbon Dioxide 25 (22-30) mmol/L Anion Gap 10 mmol/L BUN 12 (9-20) mg/dL Creatinine 0.74 (0.66-1.25) mg/dL Est GFR (CKD-EPI)AfAm >90 (>60 ml/min/1.73 sqM) Est GFR (CKD-EPI)NonAf >90 (>60 ml/min/1.73 sqM) Glucose 117 H (74-99) mg/dL Calcium 8.5 (8.4-10.2) mg/dL Total Bilirubin 0.9 (0.2-1.3) mg/dL AST 27 (17-59) U/L ALT 22 (4-49) U/L Alkaline Phosphatase 50 (38-126) U/L Total Protein 7.1 (6.3-8.2) g/dL Albumin 4.3 (3.5-5.0) g/dL TSH 1.530 (0.465-4.680) mIU/L Urine Color Urine Appearance (Clear) Urine pH (5.0-8.0) Ur Specific [place] (1.001-1.035) Urine Protein (Negative) Urine Glucose (UA) (Negative) Urine Ketones (Negative) Urine Blood (Negative) Urine Nitrite (Negative) Urine Bilirubin (Negative) Urine Urobilinogen (<2.0) mg/dL Ur Leukocyte Esterase (Negative) Urine Opiates Screen (NotDetected) Ur Oxycodone Screen (NotDetected) Urine Methadone Screen (NotDetected) Ur Barbiturates Screen (NotDetected) U Tricyclic Antidepress (NotDetected) Ur Phencyclidine Scrn (NotDetected) Ur Amphetamines Screen (NotDetected) U Methamphetamines Scrn (NotDetected) U Benzodiazepines Scrn (NotDetected) Urine Cocaine Screen (NotDetected) U Marijuana (THC) Screen (NotDetected) Influenza Type A (PCR) (Not Detectd) Influenza Type B (PCR) (Not Detectd) RSV (PCR) (Not Detectd) SARS-CoV-2 (PCR) (Not Detectd) Disposition Clinical Impression: Suicidal ideation, Depression, Adjustment reaction of adult life Disposition: TRANSFER TO PSYCH HOSP/UNIT Condition: Fair Is patient prescribed a controlled substance at d/c from ED?: No Referrals: Arben Gill MD [Primary Care Provider] - 1-2 days
[2024-02-25 23:48] LABS: Influenza A Not Detected (Not Detectd); Influenza B Not Detected (Not Detectd); RSV Not Detected (Not Detectd)
[2024-02-25 23:50] LABS: Cocaine Screen,Urine Not Detected (NotDetected); Phencyclidine Screen,Urine Not Detected (NotDetected); Urn Cannabinoid Scrn Detected (NotDetected)
[2024-02-25 23:51] LABS: Amphetamine Screen,Urine Not Detected (NotDetected); Barbiturate Screen,Urine Not Detected (NotDetected); Benzodiazepines Screen,Urine Not Detected (NotDetected); Methadone Screen, Urine Not Detected (NotDetected); Opiate Screen,Urine Detected (NotDetected); Oxycodone Screen, Urine Detected (NotDetected); Tricyclic Antidepressant,Urine Not Detected (NotDetected)
[2024-02-26 00:55] LABS: ALT 22 U/L (4-49); AST 27 U/L (17-59); African American GFR (CKD) >90 (>60 ml/min/1.73 sqM); Albumin 4.3 g/dL (3.5-5.0); Alkaline Phosphatase 50 U/L (38-126); Anion Gap 10 mmol/L; Blood Urea Nitrogen 12 mg/dL (9-20); Calcium 8.5 mg/dL (8.4-10.2); Carbon Dioxide 25 mmol/L (22-30); Chloride 101 mmol/L (98-107); Glucose 117 mg/dL (74-99); Non-African American GFR(CKD) >90 (>60 ml/min/1.73 sqM); Potassium 4.3 mmol/L (3.5-5.1); Sodium 136 mmol/L (137-145); Total Bilirubin 0.9 mg/dL (0.2-1.3); Total Protein 7.1 g/dL (6.3-8.2)
[2024-02-26 01:03] LABS: Appearance,Urine Clear (Clear); Bilirubin,Urine Negative (Negative); Blood,Urine Negative (Negative); Color,Urine Yellow; Glucose,Urine (UA) Negative (Negative); Ketones,Urine Negative (Negative); Leukocyte Esterase,Urine Negative (Negative); Nitrite,Urine Negative (Negative); PH, Urine 6.5 (5.0-8.0); Protein,Urine Negative (Negative); Specific Gravity,Urine 1.022 (1.001-1.035)
[2024-02-26 01:03] LABS: Basophils % (A) 1 %; Eosinophils # (A) 0.2 k/uL (0-0.7); Eosinophils % (A) 3 %; HCT 44.5 % (39.0-53.0); HGB 14.8 gm/dL (13.0-17.5); Lymphocytes # (A) 1.9 k/uL (1.0-4.8); Lymphocytes % (A) 34 %; MCH 31.9 pg (25.0-35.0); MCHC 33.3 g/dL (31.0-37.0); MCV 95.6 fL (80.0-100.0); Mean Platelet Volume 7.2; Monocytes # (A) 0.4 k/uL (0-1.0); Monocytes % (A) 7 %; Neutrophils # (A) 3.1 k/uL (1.3-7.7); Neutrophils % (A) 55 %; Platelet Count 182 k/uL (150-450); RBC 4.65 m/uL (4.30-5.90); RDW 13.2 % (11.5-15.5); WBC 5.7 k/uL (3.8-10.6)
[2024-02-26] MEDS: HYDROcodone/APAP 5-325MG 1 EACH TAB PO STA ×2 (02:00→11:11)
[2024-02-26] MEDS: LORazepam 1 MG TAB PO STA (03:43)
[2024-02-26 07:47] VITALS: BP 153/89; PULSE 60
[2024-02-26] MEDS: ALPRAZolam 0.5 MG TAB PO STA (07:47)
== END 2024-02-26 11:20 ==
LOC: EC 21:52
DX: R45.851 Suicidal ideations (principal); F43.20 Adjustment disorder, unspecified; F32.A Depression, unspecified; Z11.52 Encounter for screening for COVID-19
CPT/HCPCS: 36415; 80053; 80306; 81003; 82075; 84443; 85025; 87636; 99285

== ENCOUNTER → 2024-05-06 | Outpatient (CLI) | payer BC ==
--- NOTE | 2024-05-06 15:48 | XR ---
EXAMINATION TYPE: XR chest 2V DATE OF EXAM: 05/06/2024 3:44 PM COMPARISON: Chest radiographs from 08/19/2023 CLINICAL INDICATION: Male, 53 years old with history of R07.81 [address]IA; [facility] TECHNIQUE: XR chest 2V Frontal and lateral views of the chest. FINDINGS: Lungs/Pleura: There is no evidence of pleural effusion, focal consolidation, or pneumothorax. Pulmonary vascularity: Unremarkable. Heart/mediastinum: Cardiomediastinal silhouette is unremarkable. Musculoskeletal: No acute osseous pathology. IMPRESSION: No acute cardiopulmonary disease/process. [facility], , 05/06/2024 3:45 PM
== END | disposition home or self-care (01) ==
LOC: RADXRMAIN 15:23
DX: R07.81 Pleurodynia (principal)
CPT/HCPCS: 71046